=== PATIENT | male | born 1975 | race Caucasian/White ===

== ENCOUNTER 2018-05-17 17:05 | Inpatient (IN) | payer OTHER ==
--- NOTE | 2018-05-17 17:10 | EDPHY ---
H & P Time Seen by Provider: 05/17/18 17:08 HPI/ROS: CHIEF COMPLAINT: Left lower leg injury HISTORY OF PRESENT ILLNESS: Crashed into a tree skiing. Brought in by EMS after having received 100 mcg of IV fentanyl in 20 mg of IV morphine in the ambulance. He says he crashed skiing and ran his left leg into a tree. Pain started just after, severe, worse with movement or palpation. Better with IV medication but still has pain. Denies head injury or neck or back pain or loss of consciousness. Denies weakness or numbness in the left foot. REVIEW OF SYSTEMS: Eye: no change in vision ENT: no sore throat Cardiac: no chest pain or syncope Pulmonary: no cough or SOB Abdomen: no vomiting, diarrhea, abdominal pain Musculoskeletal: HPI Skin: no rash Neuro: no headache Constitutional: no fever : no urinary symptoms A comprehensive 10 point review of systems is otherwise negative aside from elements mentioned in the history of present illness. PAST MEDICAL HISTORY: Negative Social history: Lives in [place], moved here from [place] 9 months ago General Appearance: Alert and conversant, cooperative. Eyes: No scleral icterus. ENT, Mouth: Normal mucous membranes. Respiratory: Normal respiratory effort, breath sounds equal, lungs are clear to auscultation. Cardiovascular: Regular rate and rhythm. Gastrointestinal: Abdomen is soft and non tender. Neurological: Alert, face symmetric, normal motor and sensory in extremities. Skin: Abrasion just distal to the left knee laterally on the leg Musculoskeletal: No midline spinal tenderness. Tenderness and swelling proximal left tib-fib. Normal motor sensory and dorsalis pedis in the left foot. No ankle or foot tenderness. Psychiatric: Not agitated. Emergency Department course/MDM: 1749: The x-ray reviewed with the patient, a displaced tibial plateau fracture. Dilaudid 1 mg IV, discussed with Orthopedics, left knee immobilizer applied by tech. After application I evaluated the patient and appliance is in appropriate location. 1850: discussed with Gilberto, patient having pain too much for discharge. Admit directly to his service. Constitutional: Initial Vital Signs Temperature (C) 36.8 C 05/17/18 17:08 Heart Rate 70 05/17/18 17:08 Blood Pressure 116/72 05/17/18 17:08 O2 Sat (%) 100 05/17/18 17:08 O2 Delivery Mode Nasal Cannula O2 (L/minute) 2 Allergies/Adverse Reactions: No Known Allergies Allergy (Unverified 05/17/18 17:11) Home Medications: Medication Instructions Recorded NK [No Known Home Meds] 05/17/18 Medical Decision Making - Diagnostics Imaging Results: Imaging Impressions Knee X-Ray 05/17/18 17:10 Impression: Proximal tibial fracture, as-detailed. LEFT TIBIA-FIBULA (4 Views), at 5:22 PM: Again noted is the proximal tibial fracture, extending from the articular surface to the proximal metadiaphyseal junction, and associated with 4.5 mm of caudal depression along the lateral plateau component. The fibula and distal tibia are intact. The more distal aspects of the tibia appear normal, and there is no abnormality at the visualized portions of the ankle. Impression: Proximal tibial fracture with intra-articular involvement, partial comminution, impaction, and mild lateral plateau depression. Tibia/Fibula X-Ray 05/17/18 17:10 Impression: Proximal tibial fracture, as-detailed. LEFT TIBIA-FIBULA (4 Views), at 5:22 PM: Again noted is the proximal tibial fracture, extending from the articular surface to the proximal metadiaphyseal junction, and associated with 4.5 mm of caudal depression along the lateral plateau component. The fibula and distal tibia are intact. The more distal aspects of the tibia appear normal, and there is no abnormality at the visualized portions of the ankle. Impression: Proximal tibial fracture with intra-articular involvement, partial comminution, impaction, and mild lateral plateau depression. Extremity CT 05/17/18 17:50 Impression: 1. Comminuted medial and lateral tibial plateau fractures, with 5-mm depression of the central lateral tibial plateau fracture. 2. Nondisplaced fibular head fracture. 3. Nondisplaced inferior patellar fracture. 4. Left knee lipohemarthrosis. 5. No definite distal femur fracture. Imaging: I viewed and interpreted images myself Differential Diagnosis: Differential considered including but not limited to tibial plateau fracture, fibular fracture, knee dislocation, patellar injury. Consult/Admit Bed Type: Dr. Macias 371; repeat x-rays, knee immobilizer - Data Points Medications Given: Oxycodone HCl (Oxycodone Ir) 5 - 10 mg PO Q4HRS PRN PRN Reason: Pain, Severe Able to Take PO Stop: 05/27/18 19:00 Last Admin: 05/17/18 21:41 Dose: 10 mg Discontinued Medications Hydromorphone HCl (Dilaudid) 1 mg IVP EDNOW ONE Stop: 05/17/18 17:51 Last Admin: 05/17/18 17:57 Dose: 1 mg Departure - Departure Disposition: [facility] Inpatient Acute Clinical Impression: Tibial plateau fracture, left Qualifiers: Encounter type: initial encounter Fracture type: closed Qualified Code(s): S82.142A - Displaced bicondylar fracture of left tibia, initial encounter for closed fracture Condition: Good
[2018-05-17] MEDS ORDERED: HYDROmorphONE/DILAUDID 2 MG/ML INJ IVP ONE (17:50)
[2018-05-17] MEDS ORDERED: HYDROmorphONE/DILAUDID 1 MG/ML INJ IVP PRN (19:01)
[2018-05-17] MEDS: oxyCODONE IR 5 MG TAB PO PRN (21:41)
[2018-05-17] MEDS ORDERED: NS 1,000 ML IV SCH (23:55)
[2018-05-18] MEDS: oxyCODONE IR 5 MG TAB PO PRN ×5 (01:58→23:55)
[2018-05-18] MEDS ORDERED: TRANEXAMIC ACID 1,000 MG in NS 100 ML IV ONE (08:28)
--- NOTE | 2018-05-18 08:28 | PDGENHP ---
History & Physical Chief Complaint: Left Knee Pain History of Present Illness: 4/3 y/o male who was skiing yesterday fell and hit a tree along the front of his left leg. Patient had pain immediately and he came to the ED at [facility]. Radiographs and a CT were taken of the patient left knee which showed a fracture of the tibial pleateau. Patient was admitted to the hospital for surgical planning and pain control. Patient currently having mild left leg pain worse with movement in bed Relevant Physical Exam: Extremity: Left lower leg in immbolizer. Mild Swelling. TTP of light palpation. Able to DF, PF against gravity. 2+ Dorsal Pedal. Neurologically intact. Cardiorespiratory Assessment: Cardio: RRR, 2+ Dorsal Pedal and Posterior Tib pulses. Pulm: Normal Non-labored breathing
--- NOTE | 2018-05-18 10:59 | PDMN ---
Medical Necessity Medical necessity: Pt meets inpt criteria per MD man and [facility] S-760, Knee: Fracture of Tibial Plateau, Closed or Open Reduction, A-2 days. 42 y/o s/p ski accident admitted w/tibial plateau fx for pain control and pending surgery. Est LOS>2MN for ongoing management of above.
--- NOTE | 2018-05-18 11:53 | ASMTCMCOM ---
CM Note CM Note Notes: Pt has in ski accident, to OR today. PT/OT to eval when appropriate. CM to follow. D/c plan is TBD Date Signed: 05/18/2018 11:52 AM Electronically Signed By:NOLBERTO Trujillo
[2018-05-18] MEDS ORDERED: LR 1,000 ML IV ONE (12:50)
[2018-05-18] MEDS ORDERED: BUPIVACAINE 0.25% 30 ML SDV ONE ×2 (13:55→15:27)
[2018-05-18] MEDS ORDERED: ceFAZolin 2 GM/DEXTROSE 100 ML IV ONE (15:00)
--- NOTE | 2018-05-18 15:05 | SOAPPROG ---
SOAP Progress Note Assessment/Plan: Assessment: L tibial plateau fx Plan: OR for ORIF back to floor after surgery 05/18/18 15:04 Subjective: pain in left knee Objective: Vital Signs Temp Pulse Resp BP Pulse Ox 36.6 C 54 L 16 135/89 H 96 05/18/18 11:36 05/18/18 11:36 05/18/18 11:36 05/18/18 11:36 05/18/18 11:36 05/17/18 05/18/18 05/19/18 05:59 05:59 05:59 Intake Total 250 Output Total 350 Balance -100 knee moderate swelling ICD10 Worksheet Patient Problems: Problems Problem Status Onset Tibial plateau fracture, left Acute
--- NOTE | 2018-05-18 15:10 | PDANEPAE ---
ANE History of Present Illness tibial fx ANE Past Medical History - Cardiovascular History Hx Hypertension: No Hx Arrhythmias: No Hx Chest Pain: No Hx Coronary Artery / Peripheral Vascular Disease: No Hx CHF / Valvular Disease: No Hx Palpitations: No - Pulmonary History Hx COPD: No Hx Asthma/Reactive Airway Disease: No Hx Recent Upper Respiratory Infection: No Hx Oxygen in Use at Home: No Hx Sleep Apnea: No Sleep Apnea Screening Result - Last Documented: Negative - Endocrine History Hx Diabetes: No Hypothyroid: No Hyperthyroid: No Obesity: no - Chronic Pain History Chronic Pain: No - Surgical History Prior Surgeries: appendectomy. left wrist ANE Review of Systems Review of systems is: negative Review of Systems: - Exercise capacity Exercise capacity: >=4 METS ANE Patient History - Allergies Allergies/Adverse Reactions: No Known Allergies Allergy (Unverified 05/17/18 17:11) - Home Medications Home medications: home medication list seen and reviewed Home Medications: NK [No Known Home Meds] 05/17/18 [Last Taken Unknown] - NPO status NPO Status: no food or drink >8 hours NPO Since - Liquids (Date): 05/18/18 NPO Since - Liquids (Time): 00:00 NPO Since - Solids (Date): 05/18/18 NPO Since - Solids (Time): 00:00 - Anes Hx Anes Hx: no prior problems - Smoking Hx Smoking Status: Former smoker - Family Anes Hx Family Anes Hx: none ANE Labs/Vital Signs - Vital Signs Blood Pressure: 135/89 Heart Rate: 54 Respiratory Rate: 16 O2 Sat (%): 96 Height: 180.34 cm Weight: 74.843 kg ANE Physical Exam - Airway Neck exam: FROM Mallampati Score: Class 2 Mouth exam: normal dental/mouth exam - Pulmonary Pulmonary: no respiratory distress, clear to auscultation - Cardiovascular Cardiovascular: regular rate and rhythym, no murmur, rub, or gallop - ASA Status ASA Status: I ANE Anesthesia Plan Anesthesia Plan: general endotracheal anesthesia, GA w LMA Regional Anesthesia: adductor canal FNB, popliteal SNB
[2018-05-18] MEDS ORDERED: MIDAZOLAM 2 MG/2 ML VIAL IVP ONE (15:15)
[2018-05-18] MEDS ORDERED: LIDOCAINE 2% 5 ML SDV ONE (15:25)
[2018-05-18] MEDS ORDERED: PROPOFOL/EMULSION 500 MG/50 ML BOTTLE IV ONE (15:25)
[2018-05-18] MEDS ORDERED: ROPIVACAINE HCL 150 MG/30 ML INJ ONE (15:25)
[2018-05-18] MEDS ORDERED: fentaNYL 250 MCG/5 ML INJ ONE (15:25)
[2018-05-18] MEDS ORDERED: ceFAZolin 1 GM VIAL ONE ×2 (16:03)
[2018-05-18] MEDS ORDERED: ONDANSETRON 4 MG/2 ML VIAL ONE (16:05)
[2018-05-18] MEDS ORDERED: KETOROLAC 30 MG/1 ML SDV ONE (16:05)
[2018-05-18] MEDS ORDERED: DEXAMETHASONE 4 MG/ML VIAL ONE (16:05)
[2018-05-18] MEDS ORDERED: PROMETHAZINE HCL 25 MG/ML INJ IVP PRN (16:49)
[2018-05-18] MEDS ORDERED: MEPERIDINE 25 MG/0.5 ML AMP IVP PRN (16:49)
[2018-05-18] MEDS ORDERED: NALOXONE HCL 0.4 MG/ML INJ IVP PRN (16:49)
--- NOTE | 2018-05-18 16:49 | POSTANESTH ---
Post Anesthetic Evaluation Cardiovascular Status: Normal, Stable Respiratory Status: Normal, Stable Level of Consciousness/Mental Status: Can Participate in Eval Pain Control: Adequate, Prn Tx Ordered Nausea/Vomiting Control: Adequate, Prn Tx Ordered Complications Possibly Related to Anesthesia: None Noted
[2018-05-18] MEDS ORDERED: ONDANSETRON 4 MG/2 ML VIAL IVP PRN (17:11)
[2018-05-18] MEDS ORDERED: ONDANSETRON DISINTEGRATING 4 MG TAB PO PRN (17:11)
[2018-05-18] MEDS ORDERED: fentaNYL 100 MCG/2 ML INJ ONE (17:36)
[2018-05-18] MEDS: fentaNYL 100 MCG/2 ML INJ IVP PRN ×3 (17:37→17:57)
--- NOTE | 2018-05-18 17:38 | GOP ---
[f rep st] OPERATIVE REPORT DATE OF OPERATION: 05/18/2018 SURGEON: Shay Macias MD BOX BLANK MACHINE OPERATOR HELPER: Allan Bailey M.D. ANESTHESIA: General with popliteal and adductor canal blocks. PREOPERATIVE DIAGNOSIS: Left tibial plateau fracture. POSTOPERATIVE DIAGNOSIS: Left tibial plateau fracture. PROCEDURE PERFORMED: Open reduction, internal fixation left tibial plateau. FINDINGS: ESTIMATED BLOOD LOSS: 20 mL. INDICATIONS: This is a male with a depressed tibial plateau fracture from a ski injury based on the CT scan, interarticular comminution step-off and fracture pattern. We discussed surgical intervention. He elected to proceed. We discussed risks of nonunion, malunion, continued pain, arthritis, loss of reduction, hardware prominence, nerve injury, infection, blood clot, and he elects to proceed. Informed consent was obtained. All questions were answered. He was marked preoperatively. DESCRIPTION OF PROCEDURE: He was taken to the operative suite, sterilely prepped and draped in the usual fashion. A time-out was performed verifying side, site, location, and there was agreement with the team. Esmarch was utilized. Tourniquet was inflated. I made an incision over the lateral plateau and dissected down to the lateral tibia. I performed a sub meniscal arthrotomy and I irrigated the joint thoroughly removing the blood. I could see the fracture. It was depressed. A tamp through the window in the shaft was used to elevate this fracture fragment back into place, obtaining a reduction. I was then able to hold this reduction. I placed a plate, brought this to bone with a cortical screw. Placed locking screws and a conical screw proximally, cortical screws distally, stabilizing the entire tibia. I did extend the plate down the shaft to stabilize the medial fracture as well. I brought the locking screws all the way to the medial side. This all moved as a unit and the x-rays looked good, showed good reduction and hardware placement. He was irrigated, closed with 0 Vicryl, 2-0 Vicryl, 3-0 Quill, and Dermabond. Taken to the PACU in stable condition. IMPLANTS: Synthes lateral tibial plateau plate with locking and nonlocking screws. COMPLICATIONS: None. DRAINS: None specimen. CONDITION: Stable. /[id number]/MODL MTDD
[2018-05-18] MEDS: RIVAROXABAN 10 MG TAB PO SCH (20:24)
[2018-05-18] MEDS: ceFAZolin 2 GM/DEXTROSE 100 ML IV SCH (23:55)
[2018-05-19] MEDS: oxyCODONE IR 5 MG TAB PO PRN ×4 (04:18→12:17)
[2018-05-19] MEDS: ACETAMINOPHEN 325 MG TAB PO PRN ×2 (07:35→15:27)
[2018-05-19] MEDS: ceFAZolin 2 GM/DEXTROSE 100 ML IV SCH (07:36)
--- NOTE | 2018-05-19 07:40 | SOAPPROG ---
SOAP Progress Note Assessment/Plan: Assessment: 42 y/o male pod #1 from a left proximal tibia ORIF doing well Plan: Start PO pain medication on regular basis DVT PPx with Xarelto daily NWB with PT Ice 20 min every hour elevation of left lower extremity D/C Planning to home 05/19/18 07:36 Subjective: 42 y/o male who is POD31 from a left tibia orif. patient pain is doing well, he feels that it is creeping in more now today but it feels more incisional pain than the prior pain he had. Patient was able to eat last night with no problems. Patient denies any fever, chills, dizziniess, CP, SOB, abdominal pain , nausea, vomiting. Objective: Vital Signs Temp Pulse Resp BP Pulse Ox 36.8 C 67 17 118/72 97 05/19/18 04:00 05/19/18 04:00 05/19/18 04:00 05/19/18 04:00 05/19/18 04:00 05/18/18 05/19/18 05/20/18 05:59 05:59 05:59 Intake Total 250 1360 Output Total 350 780 Balance -100 580 AOx3 Dressing is C/D/I 2+ dorsal pedal pulse Brace in place can feel medial malleolus on examination of distal sensation block still intact can not current DF/PF due to block - Time Spent With Patient Time Spent With Patient: 30 minutes with greater than 50 % counseling on d/c and also patient health status - Pending Discharge Pending Discharge Within 24 Hours: Yes Pending Discharge Within 48 Hours: Yes Pending Discharge Date: 05/20/18 Pending Discharge Time: 11:00 ICD10 Worksheet Patient Problems: Problems Problem Status Onset Tibial plateau fracture, left Acute
--- NOTE | 2018-05-19 07:43 | PDDCSUM ---
Discharge Summary Discharge Summary: 42 y/o male who has had a fall while skiing on 05/17/2018. The patient was brought into the [facility] Emergency room where radiographs were taken which showed a proximal tibial fracture. Patient was admitted for pain control and surgical planning. Patient underwent risk benefit analysis and signed consent to undergo a proximal tibia ORIF with Dr. Gilberto simmons on 2018. Patient tolerated the procedure well and was brought to the PACU and once stabilized was brought back to the orthopedic floor. Patient on the orthopedic floor and IV and p.o. Pain medication, DVT prophylaxis of Xarelto. He was seen by Physical therapy and Occupational therapy for disposition and discharge planning. Patient on postoperative day 1. Was orthopedically medically stable at the time of note for discharge to home. Patient will be discharged home and will be nonweightbearing on his left lower extremity. He will have 0-30 degrees of active range of motion with the knee brace . Patient will continue to take his Xarelto for daily basis for the next 12 days. Patient will follow up in 1 week time with Allan Bailey physician patent legal assistant. Please call the office if any questions or concerns.
[2018-05-19] MEDS: RIVAROXABAN 10 MG TAB PO SCH (10:03)
[2018-05-19 15:46] VITALS: BP 156/93
--- NOTE | 2018-05-19 16:19 | ASMTLACE ---
XINE Length of stay for Answers: 3 days current admission Acuity / Level of Answers: Yes Care: Did the patient have an inpatient admission? # of Emergency department Answers: 1-2 visits in the last 6 months Score: 7 Date Signed: 05/19/2018 04:18 PM Electronically Signed By:NOLBERTO Trujillo
--- NOTE | 2018-05-19 16:24 | ASMTCMCOM ---
CM Note CM Note Notes: Pt medically stable for d/c. OT rec home, PT rec HHC. Pt is self pay, [employer] staff screened him and he is over income for Medicaid he was referred to . Pt provided [employer] and information on [facility]. Pt does not think he can afford private pay HHC. Pt reports he has money to obtain his d/c meds. [employer] does not serve pt area of residence which is [place]. Pt resides with a roommate who he reports is a "pretty good friend" but pt does not know how helpful his roommate can be. Pt seems to have a limited support network in [place]. 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 Date Signed: 05/19/2018 04:24 PM Electronically Signed By:NOLBERTO Trujillo
== END 2018-05-19 16:26 | disposition home or self-care (01) | DRG 494 ==
LOC: OBSVTOIN 19:04 → F3N 22:05
PROVIDERS: ADMIT Orthopaedic Surgery; ATTEND Orthopaedic Surgery
PROC: 0QSH04Z Reposition Left Tibia with Internal Fixation Device, Open Approach (ICD-10-PCS; principal; 2018-05-18 15:45)
DX: S82.142A Displaced bicondylar fracture of left tibia, initial encounter for closed fracture (principal); V00.322A Snow-skier colliding with stationary object, initial encounter; Y93.23 Activity, snow (alpine) (downhill) skiing, snowboarding, sledding, tobogganing and snow tubing; Z87.891 Personal history of nicotine dependence
CPT/HCPCS: 96374; 97116-GP; 97161-GP; 97165-GO; 97535-GO; C1713; J0690; J1100; J1170; J1885; J2250; J2270; J2405; J2704; J2795; J3010; L1830; L1832